=== PATIENT | female | born 1955 | race Caucasian/White ===

== ENCOUNTER 2024-10-06 10:30 | Day surgery (SDC) | payer MEDICARE ==
[2024-10-05 13:09] LABS: BASOPHILS # (AUTO) 0.1 X10'3 (0-0.2); BASOPHILS % (AUTO) 0.8 % (0-1); EOSINOPHILS # (AUTO) 0.3 X10'3 (0-0.9); EOSINOPHILS % (AUTO) 2.9 % (0-6); HEMATOCRIT 35.3 % (35.0-45.0); HEMOGLOBIN 11.5 g/dl (12.0-16.0); LYMPHOCYTES # (AUTO) 2.5 X10'3 (1.1-4.8); MEAN CORPUSCULAR HEMOGLOBIN 27.2 PG (27.0-31.0); MEAN CORPUSCULAR HGB CONC 32.6 g/dL (33.0-36.5); MEAN CORPUSCULAR VOLUME 83.3 FL (78-98); MONOCYTES # (AUTO) 0.5 X10'3 (0-0.9); MONOCYTES % (AUTO) 4.7 % (2-12); NEUTROPHILS # (AUTO) 6.4 X10'3 (1.8-7.7); NEUTROPHILS % (AUTO) 65.6 % (42-75); PLATELET COUNT 333 X10'3 (140-440); RED BLOOD COUNT 4.24 X10'6 (4.20-5.60); RED CELL DISTRIBUTION WIDTH 15.1 % (11.5-14.5); WHITE BLOOD COUNT 9.7 X10'3 (4.5-11.0)
[2024-10-05 13:19] LABS: ALBUMIN 3.4 G/DL (3.4-5.0); ANION GAP 7 (8-16); BLOOD UREA NITROGEN 28 MG/DL (7-18); BUN/CREATININE RATIO 18.4 (10.0-20.0); CHLORIDE 102 MMOL/L (99-107); CREATININE 1.52 MG/DL (0.40-0.90); GLUCOSE 93 MG/DL (70-104); POTASSIUM 5.2 MMOL/L (3.5-5.1); SODIUM 137 MMOL/L (135-145); TOTAL CARBON DIOXIDE 28.4 MMOL/L (24-32); eGFR 34 ML/MIN
[2024-10-05 13:21] LABS: APTT 33 SECONDS (22-32); PROTHROMBIN TIME 10.6 SECONDS (9.0-12.0)
[2024-10-06] VITALS (9 sets, daily range): BP systolic 98–154; BP diastolic 69–84; PULSE 45–55; RESP 13–16; O2SAT 95–99
[~2024-10-06] VITALS: Ht 165.1 cm; Wt 41.8 kg
[2024-10-06] MEDS ORDERED: CARV6.2553 PO (11:22)
[2024-10-06] MEDS ORDERED: EMPA10TA PO (11:22)
[2024-10-06] MEDS ORDERED: SPIR25TA5 PO (11:22)
[2024-10-06] MEDS ORDERED: SERT-433 PO (11:22)
[2024-10-06] MEDS ORDERED: DOCU-391 PO (11:22)
[2024-10-06] MEDS ORDERED: ATOR20TA66 PO (11:22)
[2024-10-06] MEDS ORDERED: BUDE10.7 PO (11:22)
[2024-10-06] MEDS ORDERED: HYDR-3686 PO (11:27)
[2024-10-06] MEDS ORDERED: TRAZ-251 PO (11:27)
[2024-10-06] MEDS ORDERED: OMEP40CA21 PO (11:27)
[2024-10-06] MEDS ORDERED: LOSA50TA64 PO (11:27)
[2024-10-06] MEDS ORDERED: ASPI81TA52 PO (11:28)
[2024-10-06] MEDS ORDERED: LIDOcaine 1% w/EPI 1:200,000 10 ML, BUPIVAcaine 2.5mg/ml/PF 25 MG 10mL SQ ONE (11:30)
[2024-10-06] MEDS ORDERED: acetylcysteine 200 MG/ml 4ml vial PO PRN (11:30)
[2024-10-06] MEDS ORDERED: METH10SO PO (11:31)
--- NOTE | 2024-10-06 11:31 | ELECTROCARDIOGRAPH REPORT ---
[facility] Test Date: 2024-10-06 Test Time: 11:27:59 Pat Name: AUDIE MEAD Department: [facility] Patient ID: [id number] Room: Gender: F [employer] Machine Former: HALINA0 : 1955 Requested By: MAURICE MONTANEZ Order Number: [id number] Reading MD: Dr. GARY Montanez Measurements Intervals [place] Rate: 52 P: 80 SC: 146 QRS: 85 QRSD: 92 T: 78 QT: 461 QTc: 429 Interpretive Statements Sinus bradycardia Borderline right axis deviation Electronically Signed On 10-06-2024 17:19:[address] GARY Montanez Please click the below link to view image of tracing.
[2024-10-06] MEDS ORDERED: iohexol 350MG/ML 100ml bottle IV ONE (12:42)
[2024-10-06] MEDS ORDERED: LIDOcaine 1% (10mg/ml) 2ml vial ONE (12:42)
[2024-10-06] MEDS ORDERED: heparin 1,000unit/ml 10ml vial 10 ML ONE (12:42)
[2024-10-06] MEDS ORDERED: verapamil 2.5 mg/ml inj IV ONE (12:42)
[2024-10-06] MEDS ORDERED: iohexol 350 MG/ML 50ML vial IV ONE (12:42)
[2024-10-06] MEDS ORDERED: nitroGLYCERIN 500mcg/5mL D5W 5 ML IV ONE (12:43)
[2024-10-06] MEDS ORDERED: fentaNYL/PF 50MCG/1 ML 2ML syringe ONE (12:49)
[2024-10-06] MEDS ORDERED: midazolam 1 mg/ML 2ml injection ONE (12:49)
[2024-10-06] MEDS: LORazepam 0.5 MG tablet PO PRN (12:58)
[2024-10-06] MEDS: diphenhydrAMINE 25mg capsule PO PRN (12:58)
[2024-10-06] MEDS: sodium bicarbonate 1meq/ml syr 150 ML in dextrose 5%-water 1,000 ML IV ONE (12:59)
[2024-10-06] MEDS: normal saline 1,000 ML IV SCH (12:59)
[2024-10-06] MEDS ORDERED: ACET600C PO (13:25)
[2024-10-06 14:25] LABS: ISTAT HGB ART 10.2 g/dl (12.0-16.0); ISTAT Hct ART 30 %PCV (35-45); ISTAT O2 SATURATION ARTERIAL 92 % (95-98); ISTAT SOURCE ART
--- NOTE | 2024-10-07 00:51 | CARDIOLOGY REPORT ---
DATE OF SERVICE: 10/06/2024 DICTATING PHYSICIAN: GARY Remy MD CARDIAC CATHETERIZATION NOTE GENDER: Female. AGE: 69 years. HEIGHT: 165 cm. WEIGHT: 41.8 kg. BODY SURFACE AREA: 1.42 m2. PRIMARY PHYSICIAN: Dr. Jefe Sandhu at [facility]. GRIEVANCE MANAGER: GARY Remy MD INDICATION: The patient is a 69-year-old postmenopausal female with a history of hypertension, hyperlipidemia, prior history of hepatitis C, CKD, arthritis, anxiety, COPD, prior history of substance abuse. Apparently, had an echocardiogram at [facility] on 05/08/2024. At that time, EF was 30%-35%, with severe MR, moderate TR. Subsequently, the patient was referred to both Dr. Wisdom and Dr. August by the primary physician and subsequently, she was referred for a cardiac catheterization. Risks, benefits, and alternative options were discussed. Informed consent obtained. PROCEDURE TECHNIQUE: She underwent left heart catheterization from right radial approach, 6-Divehi right radial sheath. Post-procedure access site hemostasis secured with right radial band. The patient underwent right heart catheterization from right antecubital approach, 6-Divehi right antecubital sheath. Post-procedure access site hemostasis secured with manual compression. The patient tolerated the procedure well. COMPLICATIONS: None. PROCEDURES DONE: * Ultrasound-guided right radial artery visualization and access. * Left heart catheterization, LVG, coronary cineangiography. * Conscious sedation of 30 minutes. FINDINGS: HEMODYNAMICS: Aortic systolic 138, diastolic 66, mean 92 mmHg. LVEDP of 10 mmHg. There was no significant gradient across the aortic valve. Right atrial mean 0 mmHg, RV systolic 20 mmHg, PA 23/11 mmHg. Pulmonary capillary wedge pressure was 1 mmHg. Aortic oxygen saturation was 92%. Pulmonary artery oxygen saturation of 60%. Cardiac output 2.83 L per minute. Cardiac index was 1.99 L per minute. LEFT VENTRICULOGRAM: Overall, left ventricular systolic function is about 45% with moderate global hypokinesia. Mild mitral regurgitation is seen. At that time patient systolic blood pressure was 1 60 mm of mercury. CORONARY CINEANGIOGRAPHY: Left main coronary artery is a large-caliber vessel arising from left aortic sinus with mild luminal irregularities. LAD is a medium-caliber vessel arising at the bifurcation of left main coronary artery, courses through the anterior interventricular groove, ends by wrapping around the apex. Proximally, the LAD has about 20% and mid 20% narrowing. Diagonal is a 2-mm caliber vessel with proximal 40% narrowing. Circumflex artery is a medium-caliber vessel arising at the bifurcation of left main coronary artery, courses through the left AV groove and has mild luminal irregularities. OM1 is 2.75-mm caliber with mild luminal irregularities. OM2 and OM3 are 2-mm caliber vessels with mild luminal irregularities. Right coronary artery is a medium-caliber vessel arising from the right aortic sinus and courses through the right AV groove and ends at the posterior crux by dividing into PDA and the posterolateral branches. Mid RCA has about 30% narrowing. IMPRESSION: A 69-year-old female with LV ejection fraction of 45%. LVEDP of 10 mmHg. Pulmonary capillary wedge pressure is 1 mmHg. There is mild mitral regurgitation seen. Left main coronary artery with mild luminal irregularities. Proximal LAD with proximal mid 20% narrowing. Circumflex marginal with minimal disease. Dominant RCA with mid 30% narrowing. RECOMMENDATIONS: Continue aggressive coronary risk factor modification, namely low fat, low cholesterol diet, maintaining ideal body weight, optimizing GDMT therapy. GARY Remy MD TID: [id number] RECEIPT: [id number] RADHA/JEVON/DIONE cc: Luís August MD, Jefe Sandhu MD, Dr. Wisdom [facility]USWhitley
[2024-10-07 06:13] LABS: ISTAT HGB MIX 9.9 g/dl (12.0-16.0); ISTAT Hct MIX 29 %PCV (35-45); ISTAT O2 SATURATION MIX VENOUS 60 % (60-80); ISTAT SOURCE VEN
--- NOTE | 2024-10-07 18:11 | CARDIOLOGY REPORT ---
APPROVED REPORT EXAM: Comprehensive 2D, Doppler, and color-flow Echocardiogram. Patient Location: [facility] 7 Heart Rate: 47 bpm Rhythm: Bradycardia Indications Mitral Valve Regurgitation Coronary Artery Disease FITTER TACKER: Elvis Remy MD No Previous ECHO at [facility] 2D Dimensions LA Diam3.0 cm IVSd 1.0 (0.7-1.1cm) LVDd 4.3 cm PWd 1.1 (0.7-1.1cm) IVSs 1.1 (0.8-1.2cm) LVDs 3.7 (2.5-4.0cm) PWs 1.3 (0.8-1.2cm) LVOT Diameter 1.93 (1.8-2.4cm) LVEF(%) 32.8 (>50%) IVC 22.32 mm FS (%) 15.4 % SV 27.9 ml CO 1.3 L/min M-Mode Dimensions Left Atrium(MM) 2.73 (2.5-4.0cm) Aortic Root 2.47 (2.2-3.7cm) Aortic Cusp Exc 1.85 (1.5-2.0cm) MV EPSS 1.2 (<0.5cm) Aortic Valve AoV Peak Henok. 121.7 cm/s AoV VTI 27.3 cm AO Peak GR. 5.9 mmHg AO Mean GR. 3 mmHg LVOT VTI 23.35 cm LVOT Peak Henok. 103.6 cm/s ARJUN(VTI)/BSA 2.51 cm2/m2 ARJUN (VTI) 2.51 cm2 Mitral Valve MV E Velocity 66.3 cm/s MV Peak Gr. 3 mmHg MV DECEL TIME 192 ms MV A Velocity 67.7 cm/s MV PHT 64 ms E/A Ratio 1.0 MVA (PHT) 3.44 cm2 MV VMax91.4 cm/s TDI Lateral E' P. V6.48 cm/s E/Lateral E' 10.2 Tricuspid Valve TR P. Velocity 145 cm/s RAP ESTIMATE 10 mmHg TR Peak Gr. 8 mmHg RVSP 18 mmHg LEFT VENTRICLE Normal LV size and wall thickness. Overall systolic function is moderately decreased. LVEF is 40-45%. RIGHT VENTRICLE Right ventricle is mildly dilated with mildly reduced function. ATRIA The left atrium size is normal. AORTIC VALVE Trileaflet AV appears mildly sclerotic without stenosis. Trivial insufficiency. MITRAL VALVE Mitral valve leaflets are mildly thickened with mild annular calcification. No stenosis. Mild regurgi tation. TRICUSPID VALVE The tricuspid valve is normal in structure with trace regurgitation. PULMONIC VALVE The pulmonary valve is normal in structure without insufficiency. GREAT VESSELS The aortic root is normal in size. IVC is dilated and collapses less than 50% with inspiration. PERICARDIUM Normal pericardium. No effusion. Other Information Study Quality: Fair due to body habitus
== END 2024-10-06 18:25 | disposition home or self-care (01) ==
LOC: SSTAY O 10:30
PROVIDERS: ATTEND Internal Medicine Cardiovascular Disease
DX: I34.0 Nonrheumatic mitral (valve) insufficiency (principal); I25.10 Atherosclerotic heart disease of native coronary artery without angina pectoris; I13.0 Hypertensive heart and chronic kidney disease with heart failure and stage 1 through stage 4 chronic kidney disease, or unspecified chronic kidney disease; F41.9 Anxiety disorder, unspecified; N18.9 Chronic kidney disease, unspecified; I50.22 Chronic systolic (congestive) heart failure; Z78.0 Asymptomatic menopausal state; J44.9 Chronic obstructive pulmonary disease, unspecified; E78.5 Hyperlipidemia, unspecified
CPT/HCPCS: 36415; 80048; 82803; 85014; 85025; 85610; 85730; 93005; 93306; 93460; 99152; 99153; J1644; J2003; J2250; J3010; J3490; J7030; J7070; Q0163; Q9967; 76937; A4615; A6258; A6449; C1725; C1751; C1769; C1894